=== PATIENT | female | born 1935 | race Caucasian/White ===

== ENCOUNTER → 2016-06-11 | Outpatient (CLI) | payer MEDICARE, BC ==
--- NOTE | 2016-06-11 10:41 | XR ---
EXAMINATION TYPE: XR sinus DATE OF EXAM ORDERED: 06/11/2016 10:19 AM HISTORY: Sinus pressure. COMPARISON: None. FINDINGS: The frontal sinuses are somewhat hypoplastic, greater on the left than the right. There is some haziness to the left frontal sinus and I cannot exclude some mucosal thickening. There is also mild haziness of the right maxillary sinus and I cannot exclude some mucosal disease. IMPRESSION: I CANNOT EXCLUDE SOME MUCOSAL THICKENING INVOLVING THE LEFT FRONTAL AND RIGHT MAXILLARY SINUSES.
== END | disposition home or self-care (01) ==
LOC: RADXRMAIN 10:04
PROVIDERS: ATTEND Family Medicine
DX: J32.9 Chronic sinusitis, unspecified (principal)
CPT/HCPCS: 70220

== ENCOUNTER → 2017-03-20 | Outpatient (CLI) | payer MEDICARE ==
--- NOTE | 2017-03-20 15:44 | CT ---
EXAMINATION TYPE: CT brain wo con DATE OF EXAM: 03/20/2017 COMPARISON: Prior CT brain 11/18/2015 HISTORY: Memory loss and lightheadedness. CT DLP: 999.80 mGycm Automated exposure control for dose reduction was used. Helical acquisition through the brain FINDINGS: There is no hemorrhage or hydrocephalus. Cerebral vascular calcifications are present. There is corti lemuel atrophy. Periventricular white matter shows patchy low attenuation. Calvarium is intact. Paranasa l sinuses and mastoid air cells as visualized are normal. Orbits show symmetric appearance. IMPRESSION: NO ACUTE BRAIN ABNORMALITY. AGE-RELATED CHANGES OF ATROPHY AND PROBABLE CHRONIC SMALL VESSEL ISCHEMIA .
== END | disposition home or self-care (01) ==
LOC: RADCTMAIN 14:38
PROVIDERS: ATTEND Psychiatry & Neurology Neurology
DX: G31.1 Senile degeneration of brain, not elsewhere classified (principal)
CPT/HCPCS: 70450

== ENCOUNTER 2017-06-08 06:56 | Emergency (ER) | payer BC, MEDICARE ==
[2017-06-08] MEDS ORDERED: SODIUM CHLORIDE 0.9% 500 ML IV STA ×2 (07:43→10:45)
[2017-06-08] MEDS ORDERED: ONDANSETRON 4 MG/2 ML VIAL IVP STA (07:43)
[2017-06-08] MEDS ORDERED: SODIUM CHLORIDE 0.9% 1,000 ML IV STA (07:43)
--- NOTE | 2017-06-08 07:47 | ED ---
Nausea/Vomiting/Diarrhea HPI - General Chief complaint: Nausea/Vomiting/Diarrhea Stated complaint: poss cdiff Time Seen by Provider: 06/08/17 07:30 Source: patient, family, RN notes reviewed Mode of arrival: wheelchair Limitations: no limitations - History of Present Illness Initial comments: This 81-year-old female with a prior history of C. difficile who had the onset last evening around 6:30 PM of nausea vomiting. This went on until around 10 PM that she started developing diarrhea every 45-60 minutes which is watery. She states it feels similar when she has C. diff in the past. She has not been on antibiotics recently she has some mild left lower quadrant crampy type pain no overt fevers chills or sweats she does feel dry she does feel weak. No other factors at this time MD complaint: nausea, vomiting, diarrhea - Related Data Home Medications Medication Instructions Recorded Confirmed Fish Oil/Dha/Epa [Fish Oil 1,200 1 cap PO DAILY 11/08/13 06/08/17 mg Fish Oil] Multivitamins, Thera [Multivitamin 1 tab PO DAILY 11/08/13 06/08/17 (formulary)] Calcium Carbonate/Vitamin D3 1 tab PO DAILY 04/07/14 06/08/17 [Calcium 500-Vit D3 400 Tablet] Simvastatin 20 mg PO HS 11/19/15 06/08/17 oxyCODONE HCL/ACETAMINOPHEN 1 tab PO TID 11/19/15 06/08/17 [Oxycodone-Acetaminophen 5-325] Lactobacillus Acidoph & Bulgar 1 packet PO BID 12/03/15 06/08/17 [Lactinex] ALPRAZolam [Xanax] 0.25 mg PO Q8H PRN 06/08/17 06/08/17 Loratadine [Claritin] 10 mg PO DAILY 06/08/17 06/08/17 Meclizine [Antivert] 25 mg PO Q8H 06/08/17 06/08/17 Methenamine Hippurate 1 gm PO BID 06/08/17 06/08/17 Previous Rx's Medication Instructions Recorded Sodium Chloride Tab 1 gm PO DAILY #30 tab 11/23/15 Allergies Allergy/AdvReac Type Severity Reaction Status Date / Time metronidazole [From Flagyl] Allergy Rash/Hives Verified 06/08/17 07:30 nitrofurantoin Allergy Anaphylaxis Verified 06/08/17 07:30 [From Macrobid] nitrofurantoin Allergy Anaphylaxis Verified 06/08/17 07:30 macrocrystalline [From Macrodantin] Sulfa (Sulfonamide Allergy Unknown Verified 06/08/17 07:30 Antibiotics) levofloxacin [From Levaquin] AdvReac Hallucinati Verified 06/08/17 07:30 ons Review of Systems ROS Statement: Those systems with pertinent positive or pertinent negative responses have been documented in the HPI. ROS Other: All systems not noted in ROS Statement are negative. Past Medical History Past Medical History: Chest Pain / Angina, Hyperlipidemia, Mitral Valve Prolapse (MVP), Renal Disease, Skin Disorder, Supraventricular Tachycardia (SVT) Additional Past Medical History / Comment(s): weakness, UTI. 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 Past Anesthesia/Blood Transfusion Reactions: Postoperative Nausea & Vomiting ( PONV) Past Psychological History: No Psychological Hx Reported Smoking Status: Former smoker Past Alcohol Use History: Daily Past Drug Use History: None Reported - Past Family History Father History Unknown: Yes Additional Family Medical History / Comment(s): Father of an aneurysm rupture at age 77 yrs. Mother History Unknown: Yes Family Medical History: Cancer Additional Family Medical History / Comment(s): Mother at age 77 of lung/ bone cancer. She was a smoker. Sister(s) Additional Family Medical History / Comment(s): MS Son(s) Family Medical History: Pneumonia General Exam - General Exam Comments Initial Comments: This is a well-developed well-nourished awake alert oriented 3 female Limitations: no limitations General appearance: alert, anxious Head exam: Present: atraumatic, normocephalic, normal inspection Eye exam: Present: normal appearance, PERRL, EOMI. Absent: scleral icterus, conjunctival injection, periorbital swelling ENT exam: Present: mucous membranes dry Neck exam: Present: normal inspection. Absent: tenderness, meningismus, lymphadenopathy Respiratory exam: Present: normal lung sounds bilaterally. Absent: respiratory distress, wheezes, rales, rhonchi, stridor Cardiovascular Exam: Present: regular rate, normal rhythm, normal heart sounds. Absent: systolic murmur, diastolic murmur, rubs, gallop, clicks GI/Abdominal exam: Present: soft, normal bowel sounds. Absent: distended, tenderness, guarding, rebound, rigid Extremities exam: Present: normal inspection, full ROM, normal capillary refill. Absent: tenderness, pedal edema, joint swelling, calf tenderness Back exam: Present: normal inspection Neurological exam: Present: alert, oriented X3, CN II-XII intact Psychiatric exam: Present: normal affect, normal mood Skin exam: Present: warm, dry, intact, normal color. Absent: rash Course Vital Signs 06/08/17 06/08/17 06/08/17 07:15 10:00 11:00 Temperature 97.0 F L 98.0 F 98.0 F Pulse Rate 97 84 80 Respiratory 18 20 18 Rate Blood Pressure 126/60 118/64 124/66 O2 Sat by Pulse 98 97 97 Oximetry Medical Decision Making - Medical Decision Making Patient did respond to IV fluids her test for C. diff is negative the did well after IV hydration she'll be discharged with her she is follow-up with her doctor return when necessary - Lab Data Result diagrams: 06/08/17 07:50 06/08/17 07:50 Lab Results 06/08/17 06/08/17 06/08/17 Range/Units 07:50 07:50 09:40 WBC 9.1 (3.8-10.6) k/uL RBC 4.76 (3.80-5.40) m/uL Hgb 14.6 (11.4-16.0) gm/dL Hct 45.6 (34.0-46.0) % MCV 95.8 (80.0-100.0) fL MCH 30.6 (25.0-35.0) pg MCHC 32.0 (31.0-37.0) g/dL RDW 13.2 (11.5-15.5) % Plt Count 237 (150-450) k/uL Neutrophils % 95 % Lymphocytes % 2 % Monocytes % 2 % Eosinophils % 1 % Basophils % 0 % Neutrophils # 8.6 H (1.3-7.7) k/uL Lymphocytes # 0.2 L (1.0-4.8) k/uL Monocytes # 0.1 (0-1.0) k/uL Eosinophils # 0.1 (0-0.7) k/uL Basophils # 0.0 (0-0.2) k/uL Sodium 137 (137-145) mmol/L Potassium 3.6 (3.5-5.1) mmol/L Chloride 102 (98-107) mmol/L Carbon Dioxide 24 (22-30) mmol/L Anion Gap 11 mmol/L BUN 20 H (7-17) mg/dL Creatinine 0.59 (0.52-1.04) mg/dL Est GFR (MDRD) Af Amer >60 (>60 ml/min/1.73 sqM) Est GFR (MDRD) Non-Af >60 (>60 ml/min/1.73 sqM) Glucose 132 H (74-99) mg/dL Calcium 9.3 (8.4-10.2) mg/dL Magnesium 1.6 (1.6-2.3) mg/dL Total Bilirubin 0.7 (0.2-1.3) mg/dL AST 27 (14-36) U/L ALT 30 (9-52) U/L Alkaline Phosphatase 78 (38-126) U/L Total Protein 7.4 (6.3-8.2) g/dL Albumin 4.5 (3.5-5.0) g/dL Amylase 51 (30-110) U/L Lipase 37 (23-300) U/L Urine Color Urine Appearance (Clear) Urine pH (5.0-8.0) Ur Specific [place] (1.001-1.035) Urine Protein (Negative) Urine Glucose (UA) (Negative) Urine Ketones (Negative) Urine Blood (Negative) Urine Nitrite (Negative) Urine Bilirubin (Negative) Urine Urobilinogen (<2.0) mg/dL Ur Leukocyte Esterase (Negative) Urine RBC (0-5) /hpf Urine WBC (0-5) /hpf Urine Bacteria (None) /hpf Urine Mucus (None) /hpf C. difficile (EIA) Intrp Negative (Negative) 06/08/17 Range/Units 09:40 WBC (3.8-10.6) k/uL RBC (3.80-5.40) m/uL Hgb (11.4-16.0) gm/dL Hct (34.0-46.0) % MCV (80.0-100.0) fL MCH (25.0-35.0) pg MCHC (31.0-37.0) g/dL RDW (11.5-15.5) % Plt Count (150-450) k/uL Neutrophils % % Lymphocytes % % Monocytes % % Eosinophils % % Basophils % % Neutrophils # (1.3-7.7) k/uL Lymphocytes # (1.0-4.8) k/uL Monocytes # (0-1.0) k/uL Eosinophils # (0-0.7) k/uL Basophils # (0-0.2) k/uL Sodium (137-145) mmol/L Potassium (3.5-5.1) mmol/L Chloride (98-107) mmol/L Carbon Dioxide (22-30) mmol/L Anion Gap mmol/L BUN (7-17) mg/dL Creatinine (0.52-1.04) mg/dL Est GFR (MDRD) Af Amer (>60 ml/min/1.73 sqM) Est GFR (MDRD) Non-Af (>60 ml/min/1.73 sqM) Glucose (74-99) mg/dL Calcium (8.4-10.2) mg/dL Magnesium (1.6-2.3) mg/dL Total Bilirubin (0.2-1.3) mg/dL AST (14-36) U/L ALT (9-52) U/L Alkaline Phosphatase (38-126) U/L Total Protein (6.3-8.2) g/dL Albumin (3.5-5.0) g/dL Amylase (30-110) U/L Lipase (23-300) U/L Urine Color Yellow Urine Appearance Cloudy H (Clear) Urine pH 6.0 (5.0-8.0) Ur Specific [place] 1.023 (1.001-1.035) Urine Protein Trace H (Negative) Urine Glucose (UA) Negative (Negative) Urine Ketones Negative (Negative) Urine Blood Trace H (Negative) Urine Nitrite Positive H (Negative) Urine Bilirubin Negative (Negative) Urine Urobilinogen <2.0 (<2.0) mg/dL Ur Leukocyte Esterase Negative (Negative) Urine RBC 10 H (0-5) /hpf Urine WBC 5 (0-5) /hpf Urine Bacteria Many H (None) /hpf Urine Mucus Rare H (None) /hpf C. difficile (EIA) Intrp (Negative) - Radiology Data Radiology results: report reviewed (Imaging was reviewed no acute findings.), image reviewed Disposition Clinical Impression: Gastroenteritis, Dehydration Disposition: HOME SELF-CARE Condition: Good Instructions: Acute Nausea and Vomiting (ED), Acute Diarrhea (ED), Dehydration (ED) Referrals: Jesse Abbasi MD [Primary Care Provider] - 1-2 days
[2017-06-08 08:02] LABS: Basophils % (A) 0 %; Eosinophils # (A) 0.1 k/uL (0-0.7); Eosinophils % (A) 1 %; HCT 45.6 % (34.0-46.0); HGB 14.6 gm/dL (11.4-16.0); Lymphocytes # (A) 0.2 k/uL (1.0-4.8); Lymphocytes % (A) 2 %; MCH 30.6 pg (25.0-35.0); MCV 95.8 fL (80.0-100.0); Monocytes # (A) 0.1 k/uL (0-1.0); Monocytes % (A) 2 %; Neutrophils # (A) 8.6 k/uL (1.3-7.7); Neutrophils % (A) 95 %; Platelet Count 237 k/uL (150-450); RBC 4.76 m/uL (3.80-5.40); RDW 13.2 % (11.5-15.5); WBC 9.1 k/uL (3.8-10.6)
--- NOTE | 2017-06-08 08:29 | XR ---
EXAMINATION TYPE: XR chest 2V DATE OF EXAM: 06/08/2017 COMPARISON: 06/28/2015 HISTORY: Nausea and vomiting TECHNIQUE: Frontal and lateral views of the chest are obtained. FINDINGS: There is coarsening of interstitial markings. There is no heart failure. Heart size is nor mal. Thoracic aorta is atheromatous. Bones are osteopenic. IMPRESSION: Pulmonary fibrosis. No heart failure. No significant change compared to old exam.
--- NOTE | 2017-06-08 08:31 | XR ---
EXAMINATION TYPE: XR KUB DATE OF EXAM: 06/08/2017 COMPARISON: 12/20/2014 HISTORY: Nausea and vomiting TECHNIQUE: 2 views FINDINGS: There is no sign of intestinal obstruction or pneumoperitoneum. Fecal pattern is normal. Th ere is mild lumbar levoscoliosis. There are no pathologic calcifications over the kidneys. There is v ascular calcification. IMPRESSION: Nonacute abdomen. No change.
[2017-06-08 08:33] LABS: ALT 30 U/L (9-52); AST 27 U/L (14-36); Albumin 4.5 g/dL (3.5-5.0); Alkaline Phosphatase 78 U/L (38-126); Amylase 51 U/L (30-110); Anion Gap 11 mmol/L; Blood Urea Nitrogen 20 mg/dL (7-17); Calcium 9.3 mg/dL (8.4-10.2); Carbon Dioxide 24 mmol/L (22-30); Chloride 102 mmol/L (98-107); Glucose 132 mg/dL (74-99); Lipase 37 U/L (23-300); Magnesium 1.6 mg/dL (1.6-2.3); Potassium 3.6 mmol/L (3.5-5.1); Sodium 137 mmol/L (137-145); Total Bilirubin 0.7 mg/dL (0.2-1.3); Total Protein 7.4 g/dL (6.3-8.2)
[2017-06-08 10:03] LABS: Appearance,Urine Cloudy (Clear); Bacteria,Urine Many /hpf; Bilirubin,Urine Negative (Negative); Blood,Urine Trace (Negative); Color,Urine Yellow; Glucose,Urine (UA) Negative (Negative); Ketones,Urine Negative (Negative); Leukocyte Esterase,Urine Negative (Negative); Mucus,Urine Rare /hpf; Nitrite,Urine Positive (Negative); Protein,Urine Trace (Negative); RBC,Urine 10 /hpf (0-5); Specific Gravity,Urine 1.023 (1.001-1.035); Urobilinogen,Urine <2.0 mg/dL (<2.0); WBC,Urine 5 /hpf (0-5)
[2017-06-08 12:00] VITALS: BP 123/61; PULSE 87; RESP 16; TEMP 98.8
== END 2017-06-08 12:18 | disposition home or self-care (01) ==
LOC: EC 06:56
DX: K52.9 Noninfective gastroenteritis and colitis, unspecified (principal); E78.5 Hyperlipidemia, unspecified; Z95.5 Presence of coronary angioplasty implant and graft; Z85.828 Personal history of other malignant neoplasm of skin; Z87.891 Personal history of nicotine dependence; Z79.891 Long term (current) use of opiate analgesic; Z79.899 Other long term (current) drug therapy; Z88.1 Allergy status to other antibiotic agents; Z88.2 Allergy status to sulfonamides
CPT/HCPCS: 99284 ×2; 96374 ×2; 96361 ×5; 36415; 80053; 82150; 83690; 83735; 85025; 81001; 87324; 71046; 74018; J2405

== ENCOUNTER 2017-10-20 09:40 | Emergency (ER) | payer MEDICARE ==
[2017-10-20] MEDS ORDERED: KETOROLAC 30 MG/ML 1 ML VIAL IM STA (10:21)
--- NOTE | 2017-10-20 10:26 | ED ---
General Adult HPI - General Chief complaint: Extremity Injury, Lower Stated complaint: Hip Pain Time Seen by Provider: 10/20/17 10:05 Source: patient Mode of arrival: wheelchair Limitations: no limitations - History of Present Illness Initial comments: Patient is an 81-year-old female presents with chief complaint of nontraumatic back pain. Patient states that she has a history of Achilles tendinitis and she has been wearing a boot for about a month. Patient states her hip started to hurt about a week ago and has gradually gotten worse. The patient was instructed to discontinue using her boot to make things better but this has not worked. Patient cannot identify any inciting incident. There are no aggravating or alleviating factors. She states that she does have increased pain with bearing weight and standing erect. Patient denies other symptoms at this time. She uses oxycodone for pain control and Motrin 800 3 times daily - Related Data Home Medications Medication Instructions Recorded Confirmed Simvastatin 20 mg PO DAILY 11/19/15 10/20/17 ALPRAZolam [Xanax] 0.25 mg PO Q8H PRN 06/08/17 10/20/17 Loratadine [Claritin] 10 mg PO DAILY 06/08/17 10/20/17 Meclizine [Antivert] 25 mg PO Q8H PRN 06/08/17 10/20/17 Methenamine Hippurate 1 gm PO BID 06/08/17 10/20/17 L. Acidophilus/L.bulgaricus 1 tab PO QID 10/20/17 10/20/17 [Lactinex Chewable Tablet] oxyCODONE-APAP 7.5-325MG [Percocet 1 tab PO TID 10/20/17 10/20/17 7.5-325 mg] Previous Rx's Medication Instructions Recorded Sodium Chloride Tab 1 gm PO DAILY #30 tab 11/23/15 Lidocaine 5% Patch [Lidoderm 5% 1 patch TOPICAL DAILY #20 patch 10/20/17 Patch] Naproxen [Naprosyn] 500 mg PO Q12HR #30 tab 10/20/17 Allergies Allergy/AdvReac Type Severity Reaction Status Date / Time metronidazole [From Flagyl] Allergy Rash/Hives Verified 10/20/17 10:54 nitrofurantoin Allergy Anaphylaxis Verified 10/20/17 10:54 [From Macrobid] nitrofurantoin Allergy Anaphylaxis Verified 10/20/17 10:54 macrocrystalline [From Macrodantin] Sulfa (Sulfonamide Allergy Unknown Verified 10/20/17 10:54 Antibiotics) levofloxacin [From Levaquin] AdvReac Hallucinati Verified 10/20/17 10:54 ons Review of Systems ROS Statement: Those systems with pertinent positive or pertinent negative responses have been documented in the HPI. ROS Other: All systems not noted in ROS Statement are negative. Musculoskeletal: Reports: back pain, arthralgia Past Medical History Past Medical History: Chest Pain / Angina, Hyperlipidemia, Mitral Valve Prolapse (MVP), Renal Disease, Skin Disorder, Supraventricular Tachycardia (SVT) Additional Past Medical History / Comment(s): weakness, UTI. 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 Past Anesthesia/Blood Transfusion Reactions: Postoperative Nausea & Vomiting ( PONV) Past Psychological History: No Psychological Hx Reported Smoking Status: Former smoker Past Alcohol Use History: Daily Past Drug Use History: None Reported - Past Family History Father History Unknown: Yes Additional Family Medical History / Comment(s): Father of an aneurysm rupture at age 77 yrs. Mother History Unknown: Yes Family Medical History: Cancer Additional Family Medical History / Comment(s): Mother at age 77 of lung/ bone cancer. She was a smoker. Sister(s) Additional Family Medical History / Comment(s): MS Son(s) Family Medical History: Pneumonia General Exam Limitations: no limitations General appearance: alert, in no apparent distress Head exam: Present: atraumatic, normocephalic Eye exam: Present: normal appearance ENT exam: Present: normal exam, mucous membranes moist Neck exam: Present: normal inspection Respiratory exam: Present: normal lung sounds bilaterally. Absent: respiratory distress, wheezes Cardiovascular Exam: Present: regular rate, normal rhythm GI/Abdominal exam: Present: soft. Absent: distended, tenderness Rectal exam: Present: deferred Extremities exam: Present: normal inspection, full ROM, other (Patient is full range of motion of the lower extremities at the hip and knee, there is no pain with internal, external rotation, flexion or extension.) Back exam: Present: full ROM, tenderness (Patient has tenderness at the inferior lateral aspect of her back on the left side. There is tenderness to palpation. There is muscle spasm noted on exam.), paraspinal tenderness Neurological exam: Present: alert, oriented X3 Psychiatric exam: Present: normal affect, normal mood Skin exam: Present: warm, dry, intact Course Vital Signs 10/20/17 09:48 Temperature 97.6 F Pulse Rate 83 Respiratory 18 Rate Blood Pressure 178/86 O2 Sat by Pulse 97 Oximetry Medical Decision Making - Medical Decision Making Patient presents with a chief complaint muscle spell back pain. On initial evaluation, vital signs are stable, patient is in no acute distress. She denies any traumatic injury to the area. Pain is most likely secondary to compensation from being in a walking boot. Patient will be sent for x-rays of the pelvis and dedicated films of the left hip. She was given Toradol for pain. 11:12 AM X-rays show mild osteoarthritis of the hip otherwise there is no acute process. On reevaluation, patient feeling improved after a dose of Toradol. Patient will be prescribed naproxen to use in addition with her oxycodone. She was instructed to continue taking the oxycodone as prescribed. Patient also prescribed lidocaine patches for local relief. Patient was instructed to follow up with primary care and orthopedics in 1-2 days, return to the emergency department if symptoms worsen or change. Disposition Clinical Impression: Low back pain Disposition: HOME SELF-CARE Condition: Good Instructions: Muscle Spasm (ED) Is patient prescribed a controlled substance at d/c from ED?: No Referrals: Jesse Abbasi MD [Primary Care Provider] - 1-2 days
--- NOTE | 2017-10-20 10:57 | XR ---
EXAMINATION TYPE: AP view pelvis and 2 views left hip DATE OF EXAM: 10/20/2017 COMPARISON: NONE HISTORY: 81-year-old female with lateral left hip pain FINDINGS: There is osteopenia. Mild degenerative spurring and mild superolateral hip joint space narrowing on b oth sides. No acute fracture, subluxation, or dislocation seen. SI joints appear intact. No delineati on to the arcuate lines of the sacrum. IMPRESSION: Mild osteopenia and mild bilateral hip osteoarthrosis. No acute osseous abnormality seen.
[2017-10-20 11:31] VITALS: BP 139/65; PULSE 63; RESP 16; TEMP 97
== END 2017-10-20 11:31 | disposition home or self-care (01) ==
LOC: EC 09:40
DX: M54.5 Low back pain (principal); M16.0 Bilateral primary osteoarthritis of hip; E78.5 Hyperlipidemia, unspecified; Z95.818 Presence of other cardiac implants and grafts; Z85.828 Personal history of other malignant neoplasm of skin; Z87.891 Personal history of nicotine dependence; Z79.891 Long term (current) use of opiate analgesic; Z79.899 Other long term (current) drug therapy; Z88.1 Allergy status to other antibiotic agents; Z88.2 Allergy status to sulfonamides
CPT/HCPCS: 99283; 96372; 73502; J1885

== ENCOUNTER 2018-06-25 17:06 | Emergency (ER) | payer MEDICARE ==
[2018-06-25 17:14] VITALS: BP 176/72; PULSE 66; RESP 20; TEMP 97.4
--- NOTE | 2018-06-25 17:58 | ED ---
Extremity Problem HPI - General Chief complaint: Extremity Problem,Nontraumatic Stated complaint: right foot swelling/pain Time Seen by Provider: 06/25/18 17:42 Source: patient, RN notes reviewed, old records reviewed Mode of arrival: ambulatory Limitations: no limitations - History of Present Illness Initial comments: Patient is a pleasant 82-year-old female who presents emergency Department with 1 day of right foot and ankle swelling. Patient reports no falls or trauma. She does have a history of multiple skin lesions on her lower extremities which she attributes to old age. [facility] also [facility]. The report they do not know all the results of the biopsy at this time. Patient presents today with a complaint of right foot and ankle swelling. She denies chest pain or shortness of breath. Patient has had no fevers or chills. She states that they kept the foot up and elevated for the past 5 hours today however the swelling continued to become worse. Patient states she's had no history of blood clots. - Related Data Home Medications Medication Instructions Recorded Confirmed ALPRAZolam [Xanax] 0.25 mg PO Q8H PRN 06/08/17 06/25/18 Meclizine [Antivert] 25 mg PO Q8H PRN 06/08/17 06/25/18 L. Acidophilus/L.bulgaricus 1 tab PO QID 10/20/17 06/25/18 [Lactinex Chewable Tablet] Acetaminophen Tab [Tylenol Tab] 650 mg PO Q6H PRN 06/25/18 06/25/18 Magnesium Oxide [Burch] 500 mg PO DAILY 06/25/18 06/25/18 Propranolol HCl [Propranolol HCl 60 mg PO DAILY 06/25/18 06/25/18 ER] guaiFENesin [Mucinex] 600 mg PO BID 06/25/18 06/25/18 Previous Rx's Medication Instructions Recorded Sodium Chloride Tab 1 gm PO DAILY #30 tab 11/23/15 Cephalexin [Keflex] 500 mg PO Q6HR 7 Days 06/25/18 Mupirocin [Mupirocin 2%] 1 applic TOPICAL TID #60 gm 06/25/18 Allergies Allergy/AdvReac Type Severity Reaction Status Date / Time metronidazole [From Flagyl] Allergy Rash/Hives Verified 06/25/18 17:39 nitrofurantoin Allergy Anaphylaxis Verified 06/25/18 17:39 [From Macrobid] nitrofurantoin Allergy Anaphylaxis Verified 06/25/18 17:39 macrocrystalline [From Macrodantin] Sulfa (Sulfonamide Allergy Unknown Verified 06/25/18 17:39 Antibiotics) levofloxacin [From Levaquin] AdvReac Hallucinati Verified 06/25/18 17:39 ons Review of Systems ROS Statement: Those systems with pertinent positive or pertinent negative responses have been documented in the HPI. ROS Other: All systems not noted in ROS Statement are negative. Past Medical History Past Medical History: Chest Pain / Angina, Hyperlipidemia, Mitral Valve Prolapse (MVP), Renal Disease, Skin Disorder, Supraventricular Tachycardia (SVT) Additional Past Medical History / Comment(s): weakness, UTI. 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 Past Anesthesia/Blood Transfusion Reactions: Postoperative Nausea & Vomiting ( PONV) Past Psychological History: No Psychological Hx Reported Smoking Status: Former smoker Past Alcohol Use History: Daily Past Drug Use History: None Reported - Past Family History Father History Unknown: Yes Additional Family Medical History / Comment(s): Father of an aneurysm rupture at age 77 yrs. Mother History Unknown: Yes Family Medical History: Cancer Additional Family Medical History / Comment(s): Mother at age 77 of lung/ bone cancer. She was a smoker. Sister(s) Additional Family Medical History / Comment(s): MS Son(s) Family Medical History: Pneumonia General Exam - General Exam Comments Initial Comments: This is a pleasant 82-year-old female. Here with her . Patient appears in no acute distress. Limitations: no limitations General appearance: alert, in no apparent distress Head exam: Present: atraumatic, normocephalic, normal inspection Eye exam: Present: normal appearance, PERRL, EOMI. Absent: scleral icterus, conjunctival injection, periorbital swelling ENT exam: Present: normal exam, mucous membranes moist Neck exam: Present: normal inspection. Absent: tenderness, meningismus, lymphadenopathy Respiratory exam: Present: normal lung sounds bilaterally. Absent: respiratory distress, wheezes, rales, rhonchi, stridor Cardiovascular Exam: Present: regular rate, normal rhythm, normal heart sounds. Absent: systolic murmur, diastolic murmur, rubs, gallop, clicks GI/Abdominal exam: Present: soft, normal bowel sounds. Absent: distended, tenderness, guarding, rebound, rigid Extremities exam: Present: normal inspection, full ROM, normal capillary refill. Absent: tenderness, pedal edema, joint swelling, calf tenderness Right Knee exam: Present: normal inspection, full ROM Lower Leg exam: Present: tenderness (Chest some tenderness over the lower extremity and erythema noted. Multiple skin lesions that have no surrounding drainage or cellulitis.). Absent: normal inspection Ankle exam: Present: full ROM, swelling. Absent: normal inspection Foot/Toe exam: Present: tenderness (Swelling over the medial malleolus.), swelling. Absent: normal inspection Neurovascular tendon exam: Present: no vascular compromise Back exam: Present: normal inspection Neurological exam: Present: alert, oriented X3, CN II-XII intact Psychiatric exam: Present: normal affect, normal mood Course Vital Signs 06/25/18 17:12 Temperature 97.4 F L Pulse Rate 66 Respiratory 20 Rate Blood Pressure 176/72 O2 Sat by Pulse 96 Oximetry Medical Decision Making - Medical Decision Making Patient is a pleasant 82-year-old female who presents emergency Department with 1 day of right foot and ankle swelling. US negative for DVT. XRAY shows soft tissue swelling. He denies any fever or any other complaints. I discussed that he checked for concerns for infection and cellulitis. 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 I did discuss with my next thought is the patient's symptoms are cellulitis from her skin lesions. Offered mupirocin and Keflex. I discussed the Patient can follow-up with her primary care physician. Discussed that if he area of redness and swelling gets worse that she may have to return for IV antibiotic. Patient agrees to treatment plan will comply. She'll follow -up with her PCP in 2 days. - Radiology Data Radiology results: report reviewed Soft tissue swelling or fracture. Calcaneal spurring. No acute abdomen on the right foot. No acute fracture seen. Ultrasound is negative for DVT. Disposition Clinical Impression: Right leg swelling Disposition: HOME SELF-CARE Condition: Good Instructions: Cellulitis (ED) Additional Instructions: Patient has to follow up with primary care physician. Pace keep the foot up and elevated. She is to use is antibiotic cream. If the area of redness or swelling continues to worsen please return to emergency department for reevaluation. Prescriptions: Cephalexin [Keflex] 500 mg PO Q6HR 7 Days Mupirocin [Mupirocin 2%] 1 applic TOPICAL TID #60 gm Is patient prescribed a controlled substance at d/c from ED?: No Referrals: Jesse Abbasi MD [Primary Care Provider] - 1-2 days Time of Disposition: 20:00
--- NOTE | 2018-06-25 18:57 | US ---
EXAMINATION TYPE: US venous doppler duplex LE RT DATE OF EXAM: 06/25/2018 6:40 PM COMPARISON: NONE CLINICAL HISTORY: Pain. Swelling right foot SIDE PERFORMED: Right TECHNIQUE: The lower extremity deep venous system is examined utilizing real time linear array sonog vaishali with graded compression, doppler sonography and color-flow sonography. VESSELS IMAGED: External Iliac Vein (EIV) Common Femoral Vein Deep Femoral Vein Greater Saphenous Vein * Femoral Vein Popliteal Vein Small Saphenous Vein * Proximal Calf Veins (* superficial vessels) Right Leg: Negative for DVT IMPRESSION: No evidence of deep venous thrombosis in the right leg.
--- NOTE | 2018-06-25 19:23 | XR ---
EXAMINATION TYPE: XR ankle complete RT DATE OF EXAM: 06/25/2018 COMPARISON: NONE HISTORY: Foot and ankle pain TECHNIQUE: 3 views FINDINGS: There is soft tissue swelling over the lateral malleolus. Ankle mortise is anatomic. There are plantar and Achilles calcaneal spurs. There are no erosions. IMPRESSION: Soft tissue swelling. No fracture. Calcaneal spurring.
--- NOTE | 2018-06-25 19:24 | XR ---
EXAMINATION TYPE: XR foot complete RT DATE OF EXAM: 06/25/2018 COMPARISON: NONE HISTORY: Foot pain TECHNIQUE: 3 views. FINDINGS: There are plantar and Achilles calcaneal spurs. There is vascular calcification. Metatarsals are inta ct. I see no fracture. There is some deformity of the proximal phalanx of the fourth toe consistent w ith old healed fracture. IMPRESSION: No acute abnormality of the right foot. No acute fracture seen.
== END 2018-06-25 20:17 | disposition home or self-care (01) ==
LOC: EC 17:06
DX: M79.89 Other specified soft tissue disorders (principal); M79.671 Pain in right foot; I34.1 Nonrheumatic mitral (valve) prolapse; I47.1 Supraventricular tachycardia; Z95.818 Presence of other cardiac implants and grafts; Z98.890 Other specified postprocedural states; Z85.828 Personal history of other malignant neoplasm of skin; Z87.891 Personal history of nicotine dependence; Z79.899 Other long term (current) drug therapy; Z88.1 Allergy status to other antibiotic agents; Z88.2 Allergy status to sulfonamides
CPT/HCPCS: 99284

== ENCOUNTER → 2018-07-12 | Outpatient (CLI) | payer MEDICARE ==
--- NOTE | 2018-07-13 11:35 | XR ---
EXAMINATION TYPE: XR foot complete RT DATE OF EXAM: 07/12/2018 COMPARISON: 06/25/2018 HISTORY: Joint disorder TECHNIQUE: Three-view right foot FINDINGS: Mild degenerative joint changes at the first metatarsophalangeal joint space. No acute frac tures are evident. Plantar and Achilles tendon calcaneal heel spurs are present. IMPRESSION: 1. No acute osseous abnormality.
== END | disposition home or self-care (01) ==
LOC: RADXRMAIN 16:16
PROVIDERS: ATTEND Family Medicine
DX: M25.871 Other specified joint disorders, right ankle and foot (principal)

== ENCOUNTER 2018-07-18 06:20 | Inpatient (IN) | payer MEDICARE ==
--- NOTE | 2018-07-18 07:33 | ED ---
Lower Extremity Injury HPI - General Chief Complaint: Extremity Injury, Lower Stated Complaint: R Foot Pain Time Seen by Provider: 07/18/18 07:02 Source: patient, EMS, RN notes reviewed, old records reviewed Mode of arrival: EMS - History of Present Illness Initial Comments: Patient is an 82-year-old female who presents emergency Department via EMS with her . Patient presents today complaining of right foot pain. Patient's reports that she was diagnosed with a stress fracture by orthopedic Dr. Meza. Patient has been dealing with progressive pain over the right foot. Apparently Patient was having significant difficulty with ambulation and crying in pain. EMS was called. She was given 4 mg of IV morphine in route. Patient' s is concerned that he is unable to take care of her at home due to this increased pain within her foot and inability to ambulate. He reports that it was a struggle for him to get her to go to the bathroom. He is worried about fall risk. Patient denies any other physical complaints at this time. Patient's did speak to me privately and states that she is struggling mentally and believes that she has had the possibility of increased dementia. - Related Data Home Medications Medication Instructions Recorded Confirmed ALPRAZolam [Xanax] 0.25 mg PO Q8H PRN 06/08/17 07/18/18 L. Acidophilus/L.bulgaricus 1 tab PO QID 10/20/17 07/18/18 [Lactinex Chewable Tablet] Acetaminophen Tab [Tylenol Tab] 650 mg PO Q6H PRN 06/25/18 07/18/18 guaiFENesin [Mucinex] 600 mg PO BID 06/25/18 07/18/18 Cranberry 450mg 1 tab PO BID 07/18/18 07/18/18 Ibuprofen [Motrin] 800 mg PO Q6H PRN 07/18/18 07/18/18 Propranolol [Inderal] 10 mg PO TID 07/18/18 07/18/18 Previous Rx's Medication Instructions Recorded Sodium Chloride Tab 1 gm PO DAILY #30 tab 11/23/15 Allergies Allergy/AdvReac Type Severity Reaction Status Date / Time metronidazole [From Flagyl] Allergy Rash/Hives Verified 07/18/18 08:55 nitrofurantoin Allergy Anaphylaxis Verified 07/18/18 08:55 [From Macrobid] nitrofurantoin Allergy Anaphylaxis Verified 07/18/18 08:55 macrocrystalline [From Macrodantin] Sulfa (Sulfonamide Allergy Unknown Verified 07/18/18 08:55 Antibiotics) levofloxacin [From Levaquin] AdvReac Hallucinati Verified 07/18/18 08:55 ons Review of Systems ROS Statement: Those systems with pertinent positive or pertinent negative responses have been documented in the HPI. ROS Other: All systems not noted in ROS Statement are negative. Past Medical History Past Medical History: Chest Pain / Angina, Hyperlipidemia, Mitral Valve Prolapse (MVP), Renal Disease, Skin Disorder, Supraventricular Tachycardia (SVT) Additional Past Medical History / Comment(s): weakness, UTI. 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 Past Anesthesia/Blood Transfusion Reactions: Postoperative Nausea & Vomiting ( PONV) Past Psychological History: No Psychological Hx Reported Smoking Status: Former smoker Past Alcohol Use History: Daily Past Drug Use History: None Reported - Past Family History Father History Unknown: Yes Additional Family Medical History / Comment(s): Father of an aneurysm rupture at age 77 yrs. Mother History Unknown: Yes Family Medical History: Cancer Additional Family Medical History / Comment(s): Mother at age 77 of lung/ bone cancer. She was a smoker. Sister(s) Additional Family Medical History / Comment(s): MS Son(s) Family Medical History: Pneumonia General Exam - General Exam Comments Initial Comments: 82-year-old female. Alert and oriented. No significant distress. General appearance: alert Head exam: Present: atraumatic, normocephalic, normal inspection Eye exam: Present: normal appearance, PERRL, EOMI. Absent: scleral icterus, conjunctival injection, periorbital swelling ENT exam: Present: normal exam, mucous membranes moist Neck exam: Present: normal inspection. Absent: tenderness, meningismus, lymphadenopathy Respiratory exam: Present: normal lung sounds bilaterally. Absent: respiratory distress, wheezes, rales, rhonchi, stridor Cardiovascular Exam: Present: regular rate, normal rhythm, normal heart sounds. Absent: systolic murmur, diastolic murmur, rubs, gallop, clicks GI/Abdominal exam: Present: soft, normal bowel sounds. Absent: distended, tenderness, guarding, rebound, rigid Extremities exam: Present: normal inspection, full ROM, normal capillary refill. Absent: tenderness, pedal edema, joint swelling, calf tenderness Right Knee exam: Present: normal inspection, full ROM Ankle exam: Present: normal inspection, full ROM, tenderness (Patient is status over the lateral medial malleolus.) Foot/Toe exam: Present: normal inspection, full ROM Neurovascular tendon exam: Present: no vascular compromise, pulse deficit Gait: unable to bear weight Back exam: Present: normal inspection Neurological exam: Present: alert, oriented X3, CN II-XII intact Psychiatric exam: Present: normal affect, normal mood Skin exam: Present: warm, dry, intact, normal color. Absent: rash Course Vital Signs 07/18/18 07/18/18 06:26 07:18 Temperature 98.4 F Pulse Rate 64 62 Respiratory 16 18 Rate Blood Pressure 160/75 O2 Sat by Pulse 98 96 Oximetry Procedures - Orthopedic Splinting/Casting Injury #1 Side: right Lower Extremity Injury Location: short leg Lower Extremity Immobilizer: posterior splint Medical Decision Making - Medical Decision Making 8-year-old female present today with her complaints of right foot and ankle pain. Patient reports she was diagnosed with a stress fracture within her foot. She is recently placed in a walking boot by Dr. Meza. X-rays were repeat completed of the ankle. There is evidence of a new distal tibial fracture. Patient was placed in a posterior splint. Patient's is concerned due to the pain and inability ambulate and concern for falls. He requests the Patient be admitted for possibility of placement to an extended- care facility. He also reports the Patient has had some increasing dementia. Patient's labwork was obtained. There is also evidence of a urinary tract infection. Patient will have admission with a consult. - Lab Data Result diagrams: 07/18/18 07:55 07/18/18 07:55 Lab Results 07/18/18 07/18/18 07/18/18 Range/Units 07:55 07:55 08:25 WBC 7.4 (3.8-10.6) k/uL RBC 3.90 (3.80-5.40) m/uL Hgb 12.6 (11.4-16.0) gm/dL Hct 38.3 (34.0-46.0) % MCV 98.2 (80.0-100.0) fL MCH 32.4 (25.0-35.0) pg MCHC 33.0 (31.0-37.0) g/dL RDW 13.3 (11.5-15.5) % Plt Count 328 (150-450) k/uL Neutrophils % 60 % Lymphocytes % 24 % Monocytes % 10 % Eosinophils % 5 % Basophils % 1 % Neutrophils # 4.4 (1.3-7.7) k/uL Lymphocytes # 1.8 (1.0-4.8) k/uL Monocytes # 0.7 (0-1.0) k/uL Eosinophils # 0.3 (0-0.7) k/uL Basophils # 0.0 (0-0.2) k/uL Sodium 138 (137-145) mmol/L Potassium 4.3 (3.5-5.1) mmol/L Chloride 103 (98-107) mmol/L Carbon Dioxide 29 (22-30) mmol/L Anion Gap 6 mmol/L BUN 22 H (7-17) mg/dL Creatinine 0.59 (0.52-1.04) mg/dL Est GFR (CKD-EPI)AfAm >90 (>60 ml/min/1.73 sqM) Est GFR (CKD-EPI)NonAf 86 (>60 ml/min/1.73 sqM) Glucose 89 (74-99) mg/dL Calcium 9.1 (8.4-10.2) mg/dL Total Bilirubin 0.6 (0.2-1.3) mg/dL AST 18 (14-36) U/L ALT 17 (9-52) U/L Alkaline Phosphatase 88 (38-126) U/L Total Protein 6.6 (6.3-8.2) g/dL Albumin 3.7 (3.5-5.0) g/dL Urine Color Light Yellow Urine Appearance Clear (Clear) Urine pH 5.5 (5.0-8.0) Ur Specific Farley 1.010 (1.001-1.035) Urine Protein Negative (Negative) Urine Glucose (UA) Negative (Negative) Urine Ketones Negative (Negative) Urine Blood Negative (Negative) Urine Nitrite Positive H (Negative) Urine Bilirubin Negative (Negative) Urine Urobilinogen <2.0 (<2.0) mg/dL Ur Leukocyte Esterase Negative (Negative) Urine WBC <1 (0-5) /hpf Ur Squamous Epith Cells <1 (0-4) /hpf Urine Bacteria Moderate H (None) /hpf Urine Mucus Rare H (None) /hpf 07/18/18 08:46 EKG shows normal sinus rhythm and incomplete right bundle branch block. Borderline EKG. Ventricular rate of 60 bpm. Intervals 192 ms. QRS duration 92 ms. QT QTc is 420 ms. - Radiology Data Radiology results: report reviewed A new nondisplaced oblique fracture through the distal mid diaphyseal tibia. Healing distal diaphyseal fibular fracture. Diffuse soft tissue swelling. Chest x-ray shows minimal costophrenic angle findings may represent atelectasis. Right lower extremity is negative for DVT. Foot x-ray appears normal. Disposition Clinical Impression: Right tibial fracture, Inability to ambulate due to ankle or foot, Weakness generalized, UTI (urinary tract infection) Disposition: ADMITTED IP TO THIS [facility] Condition: Stable Is patient prescribed a controlled substance at d/c from ED?: No Referrals: Jesse Abbasi MD [Primary Care Provider] - 1-2 days Time of Disposition: 09:55
[2018-07-18] MEDS: SODIUM CHLORIDE 0.9% 1,000 ML IV SCH ×2 (07:56→18:31)
[2018-07-18 08:18] LABS: Basophils % (A) 1 %; Eosinophils # (A) 0.3 k/uL (0-0.7); Eosinophils % (A) 5 %; HCT 38.3 % (34.0-46.0); HGB 12.6 gm/dL (11.4-16.0); Lymphocytes # (A) 1.8 k/uL (1.0-4.8); Lymphocytes % (A) 24 %; MCH 32.4 pg (25.0-35.0); MCV 98.2 fL (80.0-100.0); Mean Platelet Volume 6.5; Monocytes # (A) 0.7 k/uL (0-1.0); Monocytes % (A) 10 %; Neutrophils # (A) 4.4 k/uL (1.3-7.7); Neutrophils % (A) 60 %; Platelet Count 328 k/uL (150-450); RDW 13.3 % (11.5-15.5); WBC 7.4 k/uL (3.8-10.6)
[2018-07-18 08:26] LABS: ALT 17 U/L (9-52); AST 18 U/L (14-36); Albumin 3.7 g/dL (3.5-5.0); Alkaline Phosphatase 88 U/L (38-126); Anion Gap 6 mmol/L; Blood Urea Nitrogen 22 mg/dL (7-17); Calcium 9.1 mg/dL (8.4-10.2); Carbon Dioxide 29 mmol/L (22-30); Chloride 103 mmol/L (98-107); Glucose 89 mg/dL (74-99); Potassium 4.3 mmol/L (3.5-5.1); Sodium 138 mmol/L (137-145); Total Bilirubin 0.6 mg/dL (0.2-1.3); Total Protein 6.6 g/dL (6.3-8.2)
--- NOTE | 2018-07-18 08:37 | US ---
EXAMINATION TYPE: US venous doppler duplex LE RT DATE OF EXAM: 07/18/2018 8:18 AM COMPARISON: NONE CLINICAL HISTORY: Pain. Right leg pain SIDE PERFORMED: right TECHNIQUE: The lower extremity deep venous system is examined utilizing real time linear array sonog vaishali with graded compression, doppler sonography and color-flow sonography. VESSELS IMAGED: External Iliac Vein (EIV) Common Femoral Vein Deep Femoral Vein Greater Saphenous Vein * Femoral Vein Popliteal Vein Small Saphenous Vein * Proximal Calf Veins (* superficial vessels) Right Leg: No evidence of DVT IMPRESSION: 1. Right lower extremity negative for deep venous thrombosis.
[2018-07-18 08:56] LABS: Appearance,Urine Clear (Clear); Bacteria,Urine Moderate /hpf; Bilirubin,Urine Negative (Negative); Blood,Urine Negative (Negative); Color,Urine Light Yellow; Glucose,Urine (UA) Negative (Negative); Ketones,Urine Negative (Negative); Leukocyte Esterase,Urine Negative (Negative); Mucus,Urine Rare /hpf; Nitrite,Urine Positive (Negative); PH, Urine 5.5 (5.0-8.0); Protein,Urine Negative (Negative); Squamous Epithelial Cell,Urine <1 /hpf (0-4); Urobilinogen,Urine <2.0 mg/dL (<2.0)
--- NOTE | 2018-07-18 08:59 | XR ---
EXAMINATION TYPE: XR chest 2V DATE OF EXAM: 07/18/2018 COMPARISON: 06/08/2017 INDICATION: Pain TECHNIQUE: Frontal and lateral views of the chest are obtained. FINDINGS: The heart size is normal. The pulmonary vasculature is normal. Some mild infiltrate is present at the right costophrenic angle. Minimal blunting of the left costoph renic angle may be present. No posterior pleural effusions are identified.. Sternotomy wires are pre sent in the midline. IMPRESSION: 1. Minimal costophrenic angle findings may be related atelectasis.
--- NOTE | 2018-07-18 09:06 | XR ---
EXAMINATION TYPE: XR foot limited RT DATE OF EXAM: 07/18/2018 COMPARISON: 07/12/2018 HISTORY: Pain TECHNIQUE: Right foot is examined in 2 projections. This exam is compared to 07/12/2018. FINDINGS: Structures appear osteopenic. No acute fractures are identified. Joint spaces appear preser lizeth. Soft tissues appear normal. Small plantar calcaneal heel spur is present. IMPRESSION: 1. No acute osseous abnormality right foot
--- NOTE | 2018-07-18 09:15 | XR ---
EXAMINATION TYPE: XR ankle complete RT DATE OF EXAM: 07/18/2018 COMPARISON: 06/25/2018 HISTORY: Pain TECHNIQUE: Three-view right ankle FINDINGS: There is a new oblique fracture through the distal metaphyseal tibia visualized. This is no ndisplaced. There appears to be some healing of the distal diaphyseal fibular fracture. Callus formation about th e fracture site is present. Ankle mortise is intact. Diffuse soft tissue swelling is present. Vascular calcification is noted IMPRESSION: 1. New nondisplaced oblique fracture through the distal metadiaphyseal tibia. 2. Healing distal diaphyseal fibular fracture. 3. Diffuse soft tissue swelling.
[2018-07-18] MEDS ORDERED: NALOXONE 0.4 MG/ML 1 ML VIAL IV PRN (09:56)
[2018-07-18] MEDS ORDERED: MORPHINE SULFATE 4 MG/ML SYRINGE IV PRN (09:56)
[2018-07-18] MEDS ORDERED: LORazepam 2 MG/ML INJ IV PRN (09:56)
[2018-07-18] MEDS: HYDROcodone/APAP 5-325MG 1 EACH TAB PO PRN (17:07)
[2018-07-18] MEDS: PROPRANOLOL 10 MG TAB PO SCH (20:27)
[2018-07-18] MEDS: ACETAMINOPHEN TAB 325 MG TAB PO PRN (20:27)
[2018-07-19] MEDS: SODIUM CHLORIDE 0.9% 1,000 ML IV SCH ×3 (06:14→23:40)
[2018-07-19] MEDS: PROPRANOLOL 10 MG TAB PO SCH ×3 (07:51→21:16)
[2018-07-19] MEDS: HYDROcodone/APAP 5-325MG 1 EACH TAB PO PRN ×2 (07:51→23:38)
[2018-07-19] MEDS: SODIUM CHLORIDE TAB 1 GM TAB PO SCH (07:55)
[2018-07-19] MEDS: PANTOPRAZOLE 40 MG/10 ML VIAL IV SCH (07:55)
[2018-07-19] MEDS ORDERED: ONDANSETRON 4 MG/2 ML VIAL IVP PRN (10:26)
[2018-07-19] MEDS ORDERED: MORPHINE SULFATE 4 MG/ML SYRINGE IVP PRN (11:34)
--- NOTE | 2018-07-19 11:34 | P.HPIM ---
History of Present Illness H&P Date: 07/19/18 Chief Complaint: Weakness and fracture This is an 82-year-old white female with a known history of recurrent alcohol use, SIADH and hyponatremia. She was in the office several weeks ago for right ankle pain. X-ray was done in the emergency room here in [facility] which showed no acute fracture. She was having a hard time weightbearing and the diagnosis of suspected ankle sprain was made. She was placed in a air cast and asked to bear minimal weight on this leg and allowed to heal. She, several weeks later, had much more severe pain after stepping down on this. She was seen in the office immediately scheduled for urgent visit with orthopedics on suspicion of acute stress fracture. She is diagnosed with Dr. Meza and was sent home with the AFO. At home she was unable to do anything and had extreme pain. Her also reports that she became dizzy and lightheaded. He brought her to emergency room for further evaluation. Today she is doing a bit better. She says her pain is significant but controlled with medication. She denies any more dizziness or lightheadedness. She denies any chest pains, pressures, shortness breath, nausea, or vomiting of his time. Review of Systems All systems: negative Past Medical History Past Medical History: Chest Pain / Angina, Hyperlipidemia, Mitral Valve Prolapse (MVP), Renal Disease, Skin Disorder, Supraventricular Tachycardia (SVT) Additional Past Medical History / Comment(s): weakness, UTI. 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 Past Anesthesia/Blood Transfusion Reactions: Postoperative Nausea & Vomiting ( PONV) Past Psychological History: No Psychological Hx Reported Additional Psychological History / Comment(s): Pt resides with her spouse of 61 yrs. She uses a cane if she is going out of the house. She drives. She performs her own ADLs. She has balance issues. Smoking Status: Former smoker Past Alcohol Use History: Daily Additional Past Alcohol Use History / Comment(s): Pt started smoking in 1952 and quit in 1963. 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 No recent travel. Past Drug Use History: None Reported - Past Family History Father History Unknown: Yes Additional Family Medical History / Comment(s): Father of an aneurysm rupture at age 77 yrs. Mother History Unknown: Yes Family Medical History: Cancer Additional Family Medical History / Comment(s): Mother at age 77 of lung/ bone cancer. She was a smoker. Sister(s) Additional Family Medical History / Comment(s): MS Son(s) Family Medical History: Pneumonia Medications and Allergies Home Medications Medication Instructions Recorded Confirmed Type Sodium Chloride Tab 1 gm PO DAILY #30 tab 11/23/15 07/18/18 Rx ALPRAZolam [Xanax] 0.25 mg PO Q8H PRN 06/08/17 07/18/18 History L. Acidophilus/L.bulgaricus 1 tab PO QID 10/20/17 07/18/18 History [Lactinex Chewable Tablet] Acetaminophen Tab [Tylenol Tab] 650 mg PO Q6H PRN 06/25/18 07/18/18 History guaiFENesin [Mucinex] 600 mg PO BID 06/25/18 07/18/18 History Cranberry 450mg 1 tab PO BID 07/18/18 07/18/18 History Ibuprofen [Motrin] 800 mg PO Q6H PRN 07/18/18 07/18/18 History Propranolol [Inderal] 10 mg PO TID 07/18/18 07/18/18 History Allergies Allergy/AdvReac Type Severity Reaction Status Date / Time metronidazole [From Flagyl] Allergy Rash/Hives Verified 07/18/18 08:55 nitrofurantoin Allergy Anaphylaxis Verified 07/18/18 08:55 [From Macrobid] nitrofurantoin Allergy Anaphylaxis Verified 02/10/19 08:55 macrocrystalline [From Macrodantin] Sulfa (Sulfonamide Allergy Unknown Verified 07/18/18 08:55 Antibiotics) levofloxacin [From Levaquin] AdvReac Hallucinati Verified 07/18/18 08:55 ons Physical Exam Vitals: Vital Signs Temp Pulse Pulse Resp BP BP Pulse Ox 07/19/18 07:58 97.8 F 78 16 160/85 96 07/18/18 23:15 98.6 F 72 17 156/71 94 L 07/18/18 19:05 97.5 F L 97 17 151/72 98 07/18/18 16:38 97.7 F 84 16 148/70 95 07/18/18 12:04 98.5 F 65 18 135/81 96 Intake and Output 07/18/18 07/19/18 07/19/18 22:59 06:59 14:59 Other: Voiding Method Bedpan Bedpan # Voids 4 8 GENERAL: Well-appearing, Thin elderly white female well-known to me. She appears in minimal distress due to pain HEAD: Atraumatic, normocephalic. EYES: Pupils equal round and reactive to light, extraocular movements intact, sclera anicteric, conjunctiva are normal. ENT:nares patent, oropharynx clear without exudates. Moist mucous membranes. NECK: Normal range of motion, supple without lymphadenopathy or JVD, no thyromegaly LUNGS: Breath sounds clear to auscultation bilaterally and equal. No wheezes rales or rhonchi. HEART: Regular rate and rhythm without murmurs, rubs or gallops.S1S2 Normal ABDOMEN: Soft, nontender, normoactive bowel sounds. No guarding, no rebound. No masses appreciated. EXTREMITIES: There is a large right ankle dressing in place. NEUROLOGICAL: Cranial nerves II through XII grossly intact. Normal speech, Gait is untestable PSYCH: Normal mood, normal affect. SKIN: Warm, Dry, normal turgor, no rashes or lesions noted. Results CBC & Chem 7: 07/18/18 07:55 07/18/18 07:55 Chest x-ray: report reviewed Venous US: report reviewed Thrombosis Risk Factor Assmnt - DVT/VTE Prophylaxis DVT/VTE Prophylaxis: Pharmacologic Prophylaxis ordered - Choose All That Apply Each Risk Factor Represents 3 Points: Age 75 years or older Thrombosis Risk Factor Assessment Total Risk Factor Score: 3 Thrombosis Risk Factor Assessment Level: Moderate Risk Assessment and Plan (1) Syncopal episodes Current Visit: Yes Status: Acute Code(s): R55 - SYNCOPE AND COLLAPSE SNOMED Code(s): 033666013 (2) Inability to ambulate due to ankle or foot Current Visit: Yes Status: Acute Code(s): R26.2 - DIFFICULTY IN WALKING, NOT ELSEWHERE CLASSIFIED SNOMED Code(s): 768660181 (3) Right tibial fracture Current Visit: Yes Status: Acute Code(s): S82.201A - UNSP FRACTURE OF SHAFT OF RIGHT TIBIA, INIT FOR CLOS FX SNOMED Code(s): 55063426 (4) Weakness generalized Current Visit: Yes Status: Acute Code(s): R53.1 - WEAKNESS SNOMED Code(s) : 53465037 Plan: We'll consult physical therapy, repeat laboratory studies to evaluate her sodium and will consult nephrology if needed, ask orthopedic surgery regarding her fracture, reevaluate next 24 hours, continue pain medication
[2018-07-19] MEDS: HEPARIN SODIUM,PORCINE 5,000 UNIT/ML 1 ML VIAL SQ SCH ×3 (12:41→23:38)
--- NOTE | 2018-07-19 17:38 | P.CNOR ---
History of Present Illness - HPI Consult date: 07/19/18 History of present illness: This patient is an 82-year-old female past medical history of hyponatremia, SIADH, and recurrent alcohol use who presented to the emergency department via EMS with her on 07/18/18 after she was crying in pain and having difficulty ambulating. Patient was seen in the office by Dr. Meza last 07/15/18 where she was diagnosed with a right nondisplaced distal fibular fracture, and was instructed to weight bear as tolerated while in an equalizer boot. On arrival to ED yesterday, patient was found to have a new right nondisplaced oblique fracture through the distal mid diaphyseal tibia, in addition to the known right distal fibular fracture. is not in the room at the time of my exam, and patient is a poor historian. Therefore obtaining a history is difficult. Per patient, she does not know why an EMS was called or why she came to the hospital. Currently, she denies pain in the right lower extremity. She denies pain anywhere in the body. She denies injury or fall. She denies chest pain, shortness of breath, numbness or tingling of right lower extremity. She has no complaints at the time of my exam. Review of Systems Please refer to HPI. Past Medical History Past Medical History: Chest Pain / Angina, Hyperlipidemia, Mitral Valve Prolapse (MVP), Renal Disease, Skin Disorder, Supraventricular Tachycardia (SVT) Additional Past Medical History / Comment(s): weakness, UTI. 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 Past Anesthesia/Blood Transfusion Reactions: Postoperative Nausea & Vomiting ( PONV) Past Psychological History: No Psychological Hx Reported Additional Psychological History / Comment(s): Pt resides with her spouse of 61 yrs. She uses a cane if she is going out of the house. She drives. She performs her own ADLs. She has balance issues. Smoking Status: Former smoker Past Alcohol Use History: Daily Additional Past Alcohol Use History / Comment(s): Pt started smoking in 1952 and quit in 1963. She drinks 1-2 glasses of wine daily as instructed by her production intern. No recent travel. Past Drug Use History: None Reported - Past Family History Father History Unknown: Yes Additional Family Medical History / Comment(s): Father of an aneurysm rupture at age 77 yrs. Mother History Unknown: Yes Family Medical History: Cancer Additional Family Medical History / Comment(s): Mother at age 77 of lung/ bone cancer. She was a smoker. Sister(s) Additional Family Medical History / Comment(s): MS Son(s) Family Medical History: Pneumonia Medications and Allergies Home Medications Medication Instructions Recorded Confirmed Type Sodium Chloride Tab 1 gm PO DAILY #30 tab 11/23/15 07/18/18 Rx ALPRAZolam [Xanax] 0.25 mg PO Q8H PRN 06/08/17 07/18/18 History L. Acidophilus/L.bulgaricus 1 tab PO QID 10/20/17 07/18/18 History [Lactinex Chewable Tablet] Acetaminophen Tab [Tylenol Tab] 650 mg PO Q6H PRN 06/25/18 07/18/18 History guaiFENesin [Mucinex] 600 mg PO BID 06/25/18 07/18/18 History Cranberry 450mg 1 tab PO BID 07/18/18 07/18/18 History Ibuprofen [Motrin] 800 mg PO Q6H PRN 07/18/18 07/18/18 History Propranolol [Inderal] 10 mg PO TID 07/18/18 07/18/18 History Allergies Allergy/AdvReac Type Severity Reaction Status Date / Time metronidazole [From Flagyl] Allergy Rash/Hives Verified 07/18/18 08:55 nitrofurantoin Allergy Anaphylaxis Verified 07/18/18 08:55 [From Macrobid] nitrofurantoin Allergy Anaphylaxis Verified 07/18/18 08:55 macrocrystalline [From Macrodantin] Sulfa (Sulfonamide Allergy Unknown Verified 07/18/18 08:55 Antibiotics) levofloxacin [From Levaquin] AdvReac Hallucinati Verified 07/18/18 08:55 ons Physical Examination On examination, the patient is sitting up in bed in no acute distress. She is alert and orientated x2. Head is normocephalic and atraumatic. Non-labored breathing. On inspection of the right lower extremity, a posterior splint is in place. Splint is clean, dry, and intact. Patient is able to wiggle toes without difficulty. No pain with PROM of the right knee. The right toes are warm and well-perfused, with brisk capillary refill. Sensation is intact to light touch of the dorsal foot. Neurovascular is intact of the right lower extremity. On inspection of the left lower extremity, there is laceration covered by a bandage in place on the left lower leg, no active drainage, or surrounding erythema. No tenderness to palpation of the left lower leg. No pain with PROM of the left knee, left ankle, or left toes. Left toes are warm and well- perfused with brisk capillary refill. Results 07/18/18 right foot xray: No fractures or acute bony abnormalities. 07/18/18 right ankle xray: New nondisplaced oblique fracture through the distal metadiaphyseal tibia. Healing distal diaphyseal fibular fracture. - Labs Labs: H & H 07/18/18 Range/Units 07:55 Hgb 12.6 (11.4-16.0) gm/dL Hct 38.3 (34.0-46.0) % Result Diagrams: 07/18/18 07:55 07/18/18 07:55 Assessment and Plan Assessment: Acute right nondisplaced oblique fracture of the distal tibia Subacute right distal diaphyseal fibular fracture Plan: - Patient is to remain strictly non-weight bearing of right lower extremity. Remain in posterior splint, or she may transition back into her equalizer boot. - Ice and elevate right lower extremity to decrease pain and swelling. - PT/OT for gait and balance training. - Patient is to follow-up with Dr. Meza in the office in 1-2 days after discharge for application of a cast. - Anticipate discharge to extended care facility. - Patient discussed with Dr. Meza.
[2018-07-20] MEDS: HYDROcodone/APAP 5-325MG 1 EACH TAB PO PRN ×2 (05:16→20:00)
[2018-07-20 07:59] LABS: Basophils % (A) 0 %; Eosinophils # (A) 0.4 k/uL (0-0.7); Eosinophils % (A) 5 %; HCT 39.3 % (34.0-46.0); HGB 12.9 gm/dL (11.4-16.0); Lymphocytes % (A) 15 %; MCH 32.1 pg (25.0-35.0); MCHC 32.7 g/dL (31.0-37.0); Mean Platelet Volume 6.6; Monocytes # (A) 0.4 k/uL (0-1.0); Monocytes % (A) 6 %; Neutrophils # (A) 4.6 k/uL (1.3-7.7); Neutrophils % (A) 71 %; Platelet Count 312 k/uL (150-450); RBC 4.01 m/uL (3.80-5.40); RDW 13.1 % (11.5-15.5); WBC 6.5 k/uL (3.8-10.6)
--- NOTE | 2018-07-20 08:06 | P.PN ---
Subjective Progress Note Date: 07/20/18 This patient is an 82-year-old female past medical history of hyponatremia, SIADH, and recurrent alcohol use who presented to the emergency department via EMS with her on 07/18/18 after she was crying in pain and having difficulty ambulating. Patient was seen in the office by Dr. Meza last 07/15/18 where she was diagnosed with a right nondisplaced distal fibular fracture, and was instructed to weight bear as tolerated while in an equalizer boot. On arrival to ED yesterday, patient was found to have a new right nondisplaced oblique fracture through the distal mid diaphyseal tibia, in addition to the known right distal fibular fracture. is not in the room at the time of my exam, and patient is a poor historian. Therefore obtaining a history is difficult. Per patient, she does not know why an EMS was called or why she came to the hospital. She denies pain anywhere in the body. She denies injury or fall. Currently, patient states she is doing well. She denies pain in the right lower extremity. She states she has been remaining non-weight bearing on the right lower extremity in the splint, she is comfortable in the splint. Patient denies chest pain, shortness of breath, numbness or tingling of right lower extremity. She has no new orthopedic complaints today. Objective - Vital Signs Vital signs: Vital Signs Temp 97.5 F L 07/19/18 23:31 Pulse 70 07/19/18 23:31 Resp 16 07/19/18 23:31 BP 175/79 07/19/18 23:31 Pulse Ox 91 L 07/19/18 23:31 Intake & Output 07/19/18 07/20/18 07/20/18 18:59 06:59 18:59 Intake Total 280 1250 Balance 280 1250 Intake: Intake, IV Titration 1250 Amount Sodium Chloride 0.9% 1, 1250 000 ml @ 100 mls/hr IV . Q10H MELINA Rx#:[id number] Oral 180 Other 100 Other: Voiding Method Bedpan Bedpan # Voids 3 2 - Exam On examination, the patient is sitting up in bed in no acute distress. She is alert and orientated x2. On inspection of the right lower extremity, a posterior splint is in place. Splint is clean, dry, and intact. Patient is able to wiggle toes without difficulty. The right toes are warm and well-perfused, with brisk capillary refill. Sensation is intact to light touch of the dorsal foot. Neurovascular is intact of the right lower extremity. - Labs CBC & Chem 7: 07/18/18 07:55 07/18/18 07:55 Assessment and Plan Assessment: Acute right nondisplaced oblique fracture of the distal tibia Subacute right distal diaphyseal fibular fracture Plan: - Patient is to remain strictly non-weight bearing of right lower extremity. Remain in posterior splint, or she may transition back into her equalizer boot. - Ice and elevate right lower extremity to decrease pain and swelling. - PT/OT for gait and balance training. - Patient is to follow-up with Dr. Meza in the office in 1-2 days after discharge for application of a cast. - Anticipate discharge to extended care facility tomorrow. - Patient discussed with Dr. Meza.
[2018-07-20 08:22] LABS: Anion Gap 7 mmol/L; Blood Urea Nitrogen 13 mg/dL (7-17); Calcium 8.7 mg/dL (8.4-10.2); Carbon Dioxide 26 mmol/L (22-30); Chloride 99 mmol/L (98-107); Glucose 121 mg/dL (74-99); Potassium 4.7 mmol/L (3.5-5.1); Sodium 132 mmol/L (137-145)
[2018-07-20] MEDS: SODIUM CHLORIDE 0.9% 1,000 ML IV SCH ×2 (09:32→17:01)
[2018-07-20] MEDS: POLYETHYLENE GLYCOL 3350 17 GM POWD.PACK PO SCH (09:38)
[2018-07-20] MEDS: PANTOPRAZOLE 40 MG/10 ML VIAL IV SCH (09:38)
[2018-07-20] MEDS: SODIUM CHLORIDE TAB 1 GM TAB PO SCH (09:38)
[2018-07-20] MEDS: PROPRANOLOL 10 MG TAB PO SCH ×3 (09:38→20:00)
[2018-07-20] MEDS: HEPARIN SODIUM,PORCINE 5,000 UNIT/ML 1 ML VIAL SQ SCH ×3 (09:38→23:14)
[2018-07-20 09:58] LABS: T4, Free (Free Thyroxine) 1.34 ng/dL (0.78-2.19)
--- NOTE | 2018-07-20 13:34 | P.PN ---
Subjective his is an 82-year-old white female with a known history of recurrent alcohol use , SIADH and hyponatremia. She was in the office several weeks ago for right ankle pain. X-ray was done in the emergency room here in [facility] which showed no acute fracture. She was having a hard time weightbearing and the diagnosis of suspected ankle sprain was made. She was placed in a air cast and asked to bear minimal weight on this leg and allowed to heal. She, several weeks later, had much more severe pain after stepping down on this. She was seen in the office immediately scheduled for urgent visit with orthopedics on suspicion of acute stress fracture. She is diagnosed with Dr. Meza and was sent home with the AFO. At home she was unable to do anything and had extreme pain. Her also reports that she became dizzy and lightheaded. He brought her to emergency room for further evaluation. Today she is doing a bit better. She says her pain is significant but controlled with medication. She denies any more dizziness or lightheadedness. She denies any chest pains, pressures, shortness breath, nausea, or vomiting of his time. 07/20/2018 She is resting in chair. is here as well. Doing well, Pain somewhat better. ECf planned for tomorrow. sodium down to 132 today Objective - Vital Signs Vital signs: Vital Signs Temp 97.6 F 07/20/18 07:37 Pulse 66 07/20/18 07:37 Resp 16 07/20/18 07:37 BP 185/81 07/20/18 07:37 Pulse Ox 94 L 07/20/18 07:37 Intake & Output 07/19/18 07/20/18 07/20/18 18:59 06:59 18:59 Intake Total 280 1250 596 Balance 280 1250 596 Intake: Intake, IV Titration 1250 Amount Sodium Chloride 0.9% 1, 1250 000 ml @ 100 mls/hr IV . Q10H MELINA Rx#:[id number] Oral 180 596 Other 100 Other: Voiding Method Bedpan Bedpan Bedside Commode Bedpan # Voids 3 2 - Exam GENERAL: Well-appearing, Thin elderly white female well-known to me. She appears in minimal distress due to pain NECK: Normal range of motion, supple without lymphadenopathy or JVD, no thyromegaly LUNGS: Breath sounds clear to auscultation bilaterally and equal. No wheezes rales or rhonchi. HEART: Regular rate and rhythm without murmurs, rubs or gallops.S1S2 Normal ABDOMEN: Soft, nontender, normoactive bowel sounds. No guarding, no rebound. No masses appreciated. EXTREMITIES: There is a large right ankle dressing in place. NEUROLOGICAL: Cranial nerves II through XII grossly intact. Normal speech, Gait is untestable PSYCH: Normal mood, normal affect. SKIN: Warm, Dry, normal turgor, no rashes or lesions noted. - Labs CBC & Chem 7: 07/20/18 07:33 07/20/18 07:33 Labs: Abnormal Lab Results - Last 24 Hours (Table) 07/20/18 Range/Units 07:33 Sodium 132 L (137-145) mmol/L Creatinine 0.49 L (0.52-1.04) mg/dL Glucose 121 H (74-99) mg/dL TSH 0.461 L (0.465-4.680) mIU/L Assessment and Plan (1) Syncopal episodes Current Visit: Yes Status: Acute Code(s): R55 - SYNCOPE AND COLLAPSE SNOMED Code(s): 923032755 (2) Inability to ambulate due to ankle or foot Current Visit: Yes Status: Acute Code(s): R26.2 - DIFFICULTY IN WALKING, NOT ELSEWHERE CLASSIFIED SNOMED Code(s): 328587589 (3) Right tibial fracture Current Visit: Yes Status: Acute Code(s): S82.201A - UNSP FRACTURE OF SHAFT OF RIGHT TIBIA, INIT FOR CLOS FX SNOMED Code(s): 60406546 (4) Weakness generalized Current Visit: Yes Status: Acute Code(s): R53.1 - WEAKNESS SNOMED Code(s) : 82700873 (5) Hyponatremia Current Visit: No Status: Acute Code(s): E87.1 - HYPO-OSMOLALITY AND HYPONATREMIA SNOMED Code(s): 68943767 Plan: ortho recommendations reviewed Heplock IV recheck sodium in am continue current meds and TX ECF tomorrow for debility
--- NOTE | 2018-07-20 15:05 | P.PN ---
Progress Note - Text Progress Note Date: 07/20/18 Was called by the social media content specialist, Disha, regarding 's concerns for patient being transferred to the [facility] tomorrow, then having to leave the facility to be seen in the office for a cast application. I spoke with patient and her and they would like the cast placed before patient is discharged. Therefore, posterior splint was taken down and a short leg cast was applied to the patient's right lower extremity today. On inspection of the right lower leg, there was ecchymosis present on the anterior lower leg. No open wounds or lacerations. Sensation intact to light touch of the right lower extremity. Neurovascular intact of the right lower extremity. After cast application, patient is able to move her toes without issue, right toes are warm and well-perfused with brisk capillary refill. Patient tolerated cast application well. Patient is to remain strictly non-weight bearing of the right lower extremity. Cast is to remain clean, dry, and intact until follow-up appointment with Dr. Meza in the office.
[2018-07-21 01:11] VITALS: PULSE 69
[2018-07-21] MEDS: HYDROcodone/APAP 5-325MG 1 EACH TAB PO PRN ×2 (03:03→11:19)
[2018-07-21] MEDS: SODIUM CHLORIDE 0.9% 1,000 ML IV SCH (05:05)
[2018-07-21 06:45] LABS: Basophils % (A) 0 %; Eosinophils # (A) 0.2 k/uL (0-0.7); Eosinophils % (A) 5 %; HCT 39.2 % (34.0-46.0); HGB 12.8 gm/dL (11.4-16.0); Lymphocytes % (A) 21 %; MCH 31.5 pg (25.0-35.0); MCHC 32.7 g/dL (31.0-37.0); MCV 96.2 fL (80.0-100.0); Mean Platelet Volume 6.1; Monocytes # (A) 0.4 k/uL (0-1.0); Monocytes % (A) 9 %; Neutrophils % (A) 63 %; Platelet Count 305 k/uL (150-450); RBC 4.08 m/uL (3.80-5.40); WBC 4.8 k/uL (3.8-10.6)
[2018-07-21 06:58] LABS: Anion Gap 8 mmol/L; Blood Urea Nitrogen 13 mg/dL (7-17); Calcium 8.7 mg/dL (8.4-10.2); Carbon Dioxide 26 mmol/L (22-30); Chloride 92 mmol/L (98-107); Glucose 111 mg/dL (74-99); Potassium 4.3 mmol/L (3.5-5.1); Sodium 126 mmol/L (137-145)
[2018-07-21 07:17] VITALS: BP 130/70; RESP 12; TEMP 97.9
[2018-07-21] MEDS: PROPRANOLOL 10 MG TAB PO SCH (07:55)
[2018-07-21] MEDS: HEPARIN SODIUM,PORCINE 5,000 UNIT/ML 1 ML VIAL SQ SCH (07:55)
[2018-07-21] MEDS: SODIUM CHLORIDE TAB 1 GM TAB PO SCH (07:55)
[2018-07-21] MEDS: PANTOPRAZOLE 40 MG/10 ML VIAL IV SCH (07:55)
[2018-07-21] MEDS: ACETAMINOPHEN TAB 325 MG TAB PO PRN (07:55)
[2018-07-21] MEDS: POLYETHYLENE GLYCOL 3350 17 GM POWD.PACK PO SCH (07:55)
--- NOTE | 2018-07-21 10:57 | P.DS ---
Providers Date of admission: 07/18/18 09:56 Attending physician: Myles Oliva Consults: 07/18/18 09:56 Consult Physician Stat Consulting Provider: Kevan Meza Consult Reason/Comments: Tibia fracture Do you want consulting provider notified?: Yes Primary care physician: Jesse Abbasi - Discharge Diagnosis(es) (1) Syncopal episodes Current Visit: Yes Status: Acute (2) Inability to ambulate due to ankle or foot Current Visit: Yes Status: Acute (3) Right tibial fracture Current Visit: Yes Status: Acute (4) Weakness generalized Current Visit: Yes Status: Acute (5) Hyponatremia Current Visit: No Status: Acute Hospital Course: his is an 82-year-old white female with a known history of recurrent alcohol use , SIADH and hyponatremia. She was in the office several weeks ago for right ankle pain. X-ray was done in the emergency room here in [facility] which showed no acute fracture. She was having a hard time weightbearing and the diagnosis of suspected ankle sprain was made. She was placed in a air cast and asked to bear minimal weight on this leg and allowed to heal. She, several weeks later, had much more severe pain after stepping down on this. She was seen in the office immediately scheduled for urgent visit with orthopedics on suspicion of acute stress fracture. She is diagnosed with Dr. Meza and was sent home with the AFO. At home she was unable to do anything and had extreme pain. Her also reports that she became dizzy and lightheaded. He brought her to emergency room for further evaluation. Today she is doing a bit better. She says her pain is significant but controlled with medication. She denies any more dizziness or lightheadedness. She denies any chest pains, pressures, shortness breath, nausea, or vomiting of his time. 07/20/2018 She is resting in chair. is here as well. Doing well, Pain somewhat better. ECf planned for tomorrow. sodium down to 132 today 07/21/2018: yesterday a cast was placed by ortho on patient. reports she is more confused, but getting norco and xanax at his time. sodium down to 126. She bassam have BMP tomorrow at [facility] and contiue sodium pills of 1g bid, fluid restrictions of 1500ml per day. will eval her at [facility] 07/22 Patient Condition at Discharge: Stable Plan - Discharge Summary New Discharge Prescriptions: New HYDROcodone/APAP 5-325MG [[place] 5-325] 1 each PO Q4HR PRN tab PRN Reason: Moderate Pain Continue Sodium Chloride Tab 1 gm PO DAILY #30 tab ALPRAZolam [Xanax] 0.25 mg PO Q8H PRN PRN Reason: Anxiety L. Acidophilus/L.bulgaricus [Lactinex Chewable Tablet] 1 tab PO QID Acetaminophen Tab [Tylenol] 650 mg PO Q6H PRN PRN Reason: Pain guaiFENesin [Mucinex] 600 mg PO BID Propranolol [Inderal] 10 mg PO TID Ibuprofen [Motrin] 800 mg PO Q6H PRN PRN Reason: Pain Cranberry 450mg 1 tab PO BID Discharge Medication List Sodium Chloride Tab 1 gm PO DAILY #30 tab 11/23/15 [Rx] ALPRAZolam [Xanax] 0.25 mg PO Q8H PRN 06/08/17 [History] L. Acidophilus/L.bulgaricus [Lactinex Chewable Tablet] 1 tab PO QID 10/20/17 [ History] Acetaminophen Tab [Tylenol] 650 mg PO Q6H PRN 06/25/18 [History] guaiFENesin [Mucinex] 600 mg PO BID 06/25/18 [History] Cranberry 450mg 1 tab PO BID 07/18/18 [History] Ibuprofen [Motrin] 800 mg PO Q6H PRN 07/18/18 [History] Propranolol [Inderal] 10 mg PO TID 07/18/18 [History] HYDROcodone/APAP 5-325MG [[place] 5-325] 1 each PO Q4HR PRN tab 07/21/18 [Rx] Follow up Appointment(s)/Referral(s): Jesse Abbasi MD [Primary Care Provider] - 1-2 days Kevan Meza MD [Medical Doctor] - 2 Weeks Ambulatory/Diagnostic Orders: Basic Metabolic Panel [LAB.AMB] Time Frame: 1 Day, Location: None Selected Discharge Disposition: TRANSFER TO SNF/ECF
[2018-07-22] MEDS ORDERED: PANTOPRAZOLE 40 MG TABLET PO SCH (07:30)
== END 2018-07-21 16:12 | DRG 563 ==
LOC: EC 06:20 → 4SSUR 09:56
PROVIDERS: ADMIT Family Medicine; ATTEND Family Medicine
DX: S82.309A Unspecified fracture of lower end of unspecified tibia, initial encounter for closed fracture (principal); E22.2 Syndrome of inappropriate secretion of antidiuretic hormone; S89.301D Unspecified physeal fracture of lower end of right fibula, subsequent encounter for fracture with routine healing; E78.5 Hyperlipidemia, unspecified; F03.90 Unspecified dementia, unspecified severity, without behavioral disturbance, psychotic disturbance, mood disturbance, and anxiety; I34.1 Nonrheumatic mitral (valve) prolapse; J84.10 Pulmonary fibrosis, unspecified; K58.9 Irritable bowel syndrome, unspecified; N30.20 Other chronic cystitis without hematuria; Z79.899 Other long term (current) drug therapy; Z87.442 Personal history of urinary calculi; Z87.891 Personal history of nicotine dependence; Z90.710 Acquired absence of both cervix and uterus; H26.9 Unspecified cataract; Z85.828 Personal history of other malignant neoplasm of skin; Z88.1 Allergy status to other antibiotic agents; Z88.3 Allergy status to other anti-infective agents; Z88.2 Allergy status to sulfonamides; Z80.1 Family history of malignant neoplasm of trachea, bronchus and lung; Z83.6 Family history of other diseases of the respiratory system; Z82.0 Family history of epilepsy and other diseases of the nervous system; R26.2 Difficulty in walking, not elsewhere classified; R55 Syncope and collapse; Z87.440 Personal history of urinary (tract) infections
CPT/HCPCS: 29515; 36415; 51701; 71046; 80048; 80053; 81001; 84439; 84443; 85025; 93005; 99285

== ENCOUNTER 2018-10-01 14:44 | Emergency (ER) | payer MEDICARE ==
[2018-10-01 14:54] VITALS: TEMP 97.6
[2018-10-01] MEDS ORDERED: KETOROLAC 30 MG/ML 1 ML VIAL IVP STA (15:18)
[2018-10-01] MEDS ORDERED: SODIUM CHLORIDE 0.9% 500 ML IV STA (15:18)
[2018-10-01] MEDS ORDERED: ONDANSETRON 4 MG/2 ML VIAL IVP STA (15:18)
[2018-10-01] MEDS ORDERED: diphenhydrAMINE 50 MG/ML 1 ML VIAL IVP STA (15:18)
--- NOTE | 2018-10-01 15:22 | ED ---
General Adult HPI - General Chief complaint: Headache Stated complaint: headache Time Seen by Provider: 10/01/18 14:56 Source: patient, EMS Mode of arrival: EMS Limitations: no limitations - History of Present Illness Initial comments: Dictation was produced using [employer] dictation software. please excuse any grammatical, word or spelling errors. Chief Complaint: 82-year-old female with multiple comorbidities presents with 2- 3 days of headache. History of Present Illness: Patient is a 82-year-old female presents with 2-3 days of headache. Patient states she is here today because her told her to come here. She gets headaches approximately once a month. States she feels like her head is enlarged. She states that the pain is all cranial. She sits non-throbbing in nature. States that this episode started about 2 to 3 days ago. She denies this headache being the worse headache of her life. She is here today for evaluation per she has never seen a physician or specialist for evaluation of her headache before. Patient denies any diurnal pattern to her headaches. No exacerbation or mitigating factors. Patient has no neuro deficits. Denies any difficulties ambulating. The ROS documented in this emergency department record has been reviewed and confirmed by me. Those systems with pertinent positive or negative responses have been documented in the HPI. All other systems are other negative and/or noncontributory. PHYSICAL EXAM: General Impression: Alert and oriented x3, not in acute distress HEENT: Normocephalic atraumatic, extra-ocular movements intact, pupils equal and reactive to light bilaterally, mucous membranes moist. Cardiovascular: Heart regular rate and rhythm, S1&S2 audible, no murmurs, rubs or gallops Chest: Lungs clear to auscultation bilaterally, no rhonchi, no wheeze, no rales Abdomen: Bowel sounds present, abdomen soft, non-tender, non-distended, no organomegaly Musculoskeletal: Pulses present and equal in all extremities, no peripheral edema Motor: no focal deficits noted Neurological: CN II-XII grossly intact, no focal motor or sensory deficits noted, normal gait Skin: Intact with no visualized rashes Psych: Normal affect and mood ED course: 82 yo female presents with chief complaint of medical evaluation for her headache. She denies this being the worse headache of her life. Denies thunderclap in nature. As upon arrival are within acceptable limits. Patient is not concerned about this headache however she was told that her wanted her to come to get checked out. Discussed patient that CT imaging is not indicated at this time however she agreed that she would like some sort of imaging performed today. Patient given intravenous fluids and headache cocktail. CT of the brain ordered. was at bedside and had a different story. Reports that patient was recently in a rehab facility. He took out of the rehab facility earlier than was recommended. She had short episode of confusion earlier today and diarrhea. She does appear well at the moment and at baseline per patient's .Laboratory evaluation obtained. CBC, metabolic panel, rapid urine drug screen obtained. Patient is positive for benzodiazepine. Patient has urinalysis that was suggest urinary tract infection. Previous urine specimen shows ESBL however there is sensitivity to Macrobid except the patient has a anaphylactic sensitivity to Macrobid. is adamant about taking patient home. Patient denies any urinary symptoms. She appears well and not showing any signs of infection. wants to take her home and follow-up on urine cultures. He is given referral to neurology. At this point I believe this is reasonable disposition given that patient has history of chronic white blood cell with urine culture. They are told to expect to return to the emergency department if her urine culture is positive given she has a history of multi drug resistant urinary tract infections in the past. EKG interpretation: Ventricular rate 52, sinus bradycardia, MI interval 184, QRS 82, QTc 450. No MI prolongation, no QTC prolongation, no ST or T-wave changes noted. . Overall, this EKG is unremarkable - Related Data Home Medications Medication Instructions Recorded Confirmed ALPRAZolam [Xanax] 0.25 mg PO Q8H PRN 06/08/17 10/01/18 L. Acidophilus/L.bulgaricus 1 tab PO QID 10/20/17 10/01/18 [Lactinex Chewable Tablet] Acetaminophen Tab [Tylenol] 650 mg PO Q6H PRN 06/25/18 10/01/18 guaiFENesin [Mucinex] 600 mg PO BID 06/25/18 10/01/18 Cranberry 450mg 1 tab PO BID 07/18/18 10/01/18 Propranolol [Inderal] 10 mg PO TID 07/18/18 10/01/18 Benzonatate [Tessalon Perles] 100 mg PO TID PRN 10/01/18 10/01/18 Donepezil HCl [Aricept] 10 mg PO HS 10/01/18 10/01/18 HYDROcodone/APAP 5-325MG [[place] 1 tab PO Q4HR PRN 10/01/18 10/01/18 5-325] Lactose-Reduced Food [Ensure Plus] 1 can PO TID 10/01/18 10/01/18 Previous Rx's Medication Instructions Recorded Sodium Chloride Tab 1 gm PO DAILY #30 tab 11/23/15 Allergies Allergy/AdvReac Type Severity Reaction Status Date / Time metronidazole [From Flagyl] Allergy Rash/Hives Verified 10/01/18 16:22 nitrofurantoin Allergy Anaphylaxis Verified 10/01/18 16:22 [From Macrobid] nitrofurantoin Allergy Anaphylaxis Verified 10/01/18 16:22 macrocrystalline [From Macrodantin] Sulfa (Sulfonamide Allergy Unknown Verified 10/01/18 16:22 Antibiotics) levofloxacin [From Levaquin] AdvReac Hallucinati Verified 10/01/18 16:22 ons Review of Systems ROS Statement: Those systems with pertinent positive or pertinent negative responses have been documented in the HPI. ROS Other: All systems not noted in ROS Statement are negative. Past Medical History Past Medical History: Chest Pain / Angina, Hyperlipidemia, Mitral Valve Prolapse (MVP), Renal Disease, Skin Disorder, Supraventricular Tachycardia (SVT) Additional Past Medical History / Comment(s): weakness, UTI. hyponatremia, AMS, dehydration, weakness generalized, chronic cystitis, Macrodantin lung fibrosis, benign adrenal gland growth, kidney stones, IBS, balance issues, MVP with surgical repair, acute metabolic encephalopathy with hyponatremia d/t SIADH in the past, cataract L eye, past L humerus fracture, dermatitis. 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 Past Anesthesia/Blood Transfusion Reactions: Postoperative Nausea & Vomiting (PONV) Past Psychological History: No Psychological Hx Reported Smoking Status: Former smoker Past Alcohol Use History: Daily Past Drug Use History: None Reported - Past Family History Father History Unknown: Yes Additional Family Medical History / Comment(s): Father of an aneurysm rupture at age 77 yrs. Mother History Unknown: Yes Family Medical History: Cancer Additional Family Medical History / Comment(s): Mother at age 77 of lung /bone cancer. She was a smoker. Sister(s) Additional Family Medical History / Comment(s): MS Son(s) Family Medical History: Pneumonia General Exam Limitations: no limitations Course Vital Signs 10/01/18 10/01/18 10/01/18 14:53 16:30 17:53 Temperature 97.6 F Pulse Rate 54 L 52 L 54 L Respiratory 16 18 16 Rate Blood Pressure 146/74 151/69 134/58 O2 Sat by Pulse 96 98 97 Oximetry Medical Decision Making - Lab Data Result diagrams: 10/01/18 15:37 10/01/18 15:37 Lab Results 10/01/18 10/01/18 10/01/18 Range/Units 15:37 15:37 15:37 WBC 7.5 (3.8-10.6) k/uL RBC 4.42 (3.80-5.40) m/uL Hgb 13.4 (11.4-16.0) gm/dL Hct 41.1 (34.0-46.0) % MCV 93.1 (80.0-100.0) fL MCH 30.4 (25.0-35.0) pg MCHC 32.7 (31.0-37.0) g/dL RDW 14.8 (11.5-15.5) % Plt Count 269 (150-450) k/uL Neutrophils % 70 % Lymphocytes % 19 % Monocytes % 5 % Eosinophils % 2 % Basophils % 1 % Neutrophils # 5.3 (1.3-7.7) k/uL Lymphocytes # 1.5 (1.0-4.8) k/uL Monocytes # 0.4 (0-1.0) k/uL Eosinophils # 0.1 (0-0.7) k/uL Basophils # 0.1 (0-0.2) k/uL Sodium 138 (137-145) mmol/L Potassium 4.8 (3.5-5.1) mmol/L Chloride 105 (98-107) mmol/L Carbon Dioxide 26 (22-30) mmol/L Anion Gap 7 mmol/L BUN 12 (7-17) mg/dL Creatinine 0.40 L (0.52-1.04) mg/dL Est GFR (CKD-EPI)AfAm >90 (>60 ml/min/1.73 sqM) Est GFR (CKD-EPI)NonAf >90 (>60 ml/min/1.73 sqM) Glucose 80 (74-99) mg/dL Calcium 9.2 (8.4-10.2) mg/dL Magnesium 1.6 (1.6-2.3) mg/dL Total Bilirubin 0.4 (0.2-1.3) mg/dL AST 24 (14-36) U/L ALT 27 (9-52) U/L Alkaline Phosphatase 94 (38-126) U/L Ammonia <9 (<30) umol/L Troponin I (0.000-0.034) ng/mL Total Protein 6.5 (6.3-8.2) g/dL Albumin 3.8 (3.5-5.0) g/dL Urine Color Urine Appearance (Clear) Urine pH (5.0-8.0) Ur Specific [place] (1.001-1.035) Urine Protein (Negative) Urine Glucose (UA) (Negative) Urine Ketones (Negative) Urine Blood (Negative) Urine Nitrite (Negative) Urine Bilirubin (Negative) Urine Urobilinogen (<2.0) mg/dL Ur Leukocyte Esterase (Negative) Urine RBC (0-5) /hpf Urine WBC (0-5) /hpf Ur Squamous Epith Cells (0-4) /hpf Amorphous Sediment (None) /hpf Urine Bacteria (None) /hpf Hyaline Casts (0-2) /lpf Urine Opiates Screen (NotDetected) Ur Oxycodone Screen (NotDetected) Urine Methadone Screen (NotDetected) Ur Propoxyphene Screen (NotDetected) Ur Barbiturates Screen (NotDetected) U Tricyclic Antidepress (NotDetected) Ur Phencyclidine Scrn (NotDetected) Ur Amphetamines Screen (NotDetected) U Methamphetamines Scrn (NotDetected) U Benzodiazepines Scrn (NotDetected) Urine Cocaine Screen (NotDetected) U Marijuana (THC) Screen (NotDetected) 10/01/18 10/01/18 10/01/18 Range/Units 15:37 16:49 18:35 WBC (3.8-10.6) k/uL RBC (3.80-5.40) m/uL Hgb (11.4-16.0) gm/dL Hct (34.0-46.0) % MCV (80.0-100.0) fL MCH (25.0-35.0) pg MCHC (31.0-37.0) g/dL RDW (11.5-15.5) % Plt Count (150-450) k/uL Neutrophils % % Lymphocytes % % Monocytes % % Eosinophils % % Basophils % % Neutrophils # (1.3-7.7) k/uL Lymphocytes # (1.0-4.8) k/uL Monocytes # (0-1.0) k/uL Eosinophils # (0-0.7) k/uL Basophils # (0-0.2) k/uL Sodium (137-145) mmol/L Potassium (3.5-5.1) mmol/L Chloride (98-107) mmol/L Carbon Dioxide (22-30) mmol/L Anion Gap mmol/L BUN (7-17) mg/dL Creatinine (0.52-1.04) mg/dL Est GFR (CKD-EPI)AfAm (>60 ml/min/1.73 sqM) Est GFR (CKD-EPI)NonAf (>60 ml/min/1.73 sqM) Glucose (74-99) mg/dL Calcium (8.4-10.2) mg/dL Magnesium (1.6-2.3) mg/dL Total Bilirubin (0.2-1.3) mg/dL AST (14-36) U/L ALT (9-52) U/L Alkaline Phosphatase (38-126) U/L Ammonia (<30) umol/L Troponin I <0.012 (0.000-0.034) ng/mL Total Protein (6.3-8.2) g/dL Albumin (3.5-5.0) g/dL Urine Color Light Yellow Urine Appearance Cloudy H (Clear) Urine pH 7.0 (5.0-8.0) Ur Specific [place] 1.010 (1.001-1.035) Urine Protein Negative (Negative) Urine Glucose (UA) Negative (Negative) Urine Ketones Trace H (Negative) Urine Blood Negative (Negative) Urine Nitrite Negative (Negative) Urine Bilirubin Negative (Negative) Urine Urobilinogen <2.0 (<2.0) mg/dL Ur Leukocyte Esterase Large H (Negative) Urine RBC 4 (0-5) /hpf Urine WBC 40 H (0-5) /hpf Ur Squamous Epith Cells 16 H (0-4) /hpf Amorphous Sediment Occasional H (None) /hpf Urine Bacteria Moderate H (None) /hpf Hyaline Casts 2 (0-2) /lpf Urine Opiates Screen Not Detected (NotDetected) Ur Oxycodone Screen Not Detected (NotDetected) Urine Methadone Screen Not Detected (NotDetected) Ur Propoxyphene Screen Not Detected (NotDetected) Ur Barbiturates Screen Not Detected (NotDetected) U Tricyclic Antidepress Not Detected (NotDetected) Ur Phencyclidine Scrn Not Detected (NotDetected) Ur Amphetamines Screen Not Detected (NotDetected) U Methamphetamines Scrn Not Detected (NotDetected) U Benzodiazepines Scrn Detected H (NotDetected) Urine Cocaine Screen Not Detected (NotDetected) U Marijuana (THC) Screen Not Detected (NotDetected) Disposition Clinical Impression: Headache Disposition: HOME SELF-CARE Condition: Good Instructions (If sedation given, give patient instructions): Acute Headache (ED) Is patient prescribed a controlled substance at d/c from ED?: No Referrals: Jesse Abbasi MD [Primary Care Provider] - 1-2 days Yamilka Cordoba MD [STAFF PHYSICIAN] - 1-2 days Time of Disposition: 19:19
--- NOTE | 2018-10-01 16:08 | CT ---
EXAMINATION TYPE: CT brain wo con DATE OF EXAM: 10/01/2018 COMPARISON: 03/20/2017 HISTORY: Patient complains of headache. CT DLP: 1105.[address] of the brain was performed. The ventricles, basal cisterns and sulci overlying the cerebral convexities demonstrate mild enlargem ent. There is no evidence for intracranial hemorrhage or sulcal effacement. There is decreased attenuation about the periventricular white matter and deep white matter of both c erebral hemispheres, compatible with chronic small vessel ischemia. Differential diagnosis does inclu de demyelination. No mass effects are seen.No midline shift. Osseous calvarium is intact. If symptoms persist consider MRI. IMPRESSION: 1. Age related atrophic and chronic small vessel ischemic change without acute intracranial process s een at this time.
[2018-10-01 17:13] LABS: Basophils # (A) 0.1 k/uL (0-0.2); Basophils % (A) 1 %; Eosinophils # (A) 0.1 k/uL (0-0.7); Eosinophils % (A) 2 %; HCT 41.1 % (34.0-46.0); HGB 13.4 gm/dL (11.4-16.0); Lymphocytes # (A) 1.5 k/uL (1.0-4.8); Lymphocytes % (A) 19 %; MCH 30.4 pg (25.0-35.0); MCHC 32.7 g/dL (31.0-37.0); MCV 93.1 fL (80.0-100.0); Mean Platelet Volume 7.5; Monocytes # (A) 0.4 k/uL (0-1.0); Monocytes % (A) 5 %; Neutrophils # (A) 5.3 k/uL (1.3-7.7); Neutrophils % (A) 70 %; Platelet Count 269 k/uL (150-450); RBC 4.42 m/uL (3.80-5.40); RDW 14.8 % (11.5-15.5); WBC 7.5 k/uL (3.8-10.6)
[2018-10-01 17:23] LABS: ALT 27 U/L (9-52); AST 24 U/L (14-36); Albumin 3.8 g/dL (3.5-5.0); Alkaline Phosphatase 94 U/L (38-126); Anion Gap 7 mmol/L; Blood Urea Nitrogen 12 mg/dL (7-17); Calcium 9.2 mg/dL (8.4-10.2); Carbon Dioxide 26 mmol/L (22-30); Chloride 105 mmol/L (98-107); Glucose 80 mg/dL (74-99); Magnesium 1.6 mg/dL (1.6-2.3); Potassium 4.8 mmol/L (3.5-5.1); Sodium 138 mmol/L (137-145); Total Bilirubin 0.4 mg/dL (0.2-1.3); Total Protein 6.5 g/dL (6.3-8.2)
[2018-10-01 18:55] LABS: Amorphous Sediment,Urine Occasional /hpf; Appearance,Urine Cloudy (Clear); Bacteria,Urine Moderate /hpf; Bilirubin,Urine Negative (Negative); Blood,Urine Negative (Negative); Color,Urine Light Yellow; Glucose,Urine (UA) Negative (Negative); Hyaline Casts,Urine 2 /lpf (0-2); Ketones,Urine Trace (Negative); Leukocyte Esterase,Urine Large (Negative); Nitrite,Urine Negative (Negative); Protein,Urine Negative (Negative); RBC,Urine 4 /hpf (0-5); Squamous Epithelial Cell,Urine 16 /hpf (0-4); Urobilinogen,Urine <2.0 mg/dL (<2.0); WBC,Urine 40 /hpf (0-5)
[2018-10-01 19:01] LABS: Amphetamine Screen,Urine Not Detected (NotDetected); Barbiturate Screen,Urine Not Detected (NotDetected); Benzodiazepines Screen,Urine Detected (NotDetected); Cocaine Screen,Urine Not Detected (NotDetected); Methadone Screen, Urine Not Detected (NotDetected); Opiate Screen,Urine Not Detected (NotDetected); Oxycodone Screen, Urine Not Detected (NotDetected); Phencyclidine Screen,Urine Not Detected (NotDetected); Tricyclic Antidepressant,Urine Not Detected (NotDetected); Urn Cannabinoid Scrn Not Detected (NotDetected)
[2018-10-01 19:39] VITALS: BP 133/56; PULSE 56; RESP 18
== END 2018-10-01 19:40 | disposition home or self-care (01) ==
LOC: EC 14:44
DX: R51 Headache (principal); Z85.828 Personal history of other malignant neoplasm of skin; Z87.891 Personal history of nicotine dependence; Z79.899 Other long term (current) drug therapy; Z88.1 Allergy status to other antibiotic agents; Z88.2 Allergy status to sulfonamides; Z88.8 Allergy status to other drugs, medicaments and biological substances; Z95.818 Presence of other cardiac implants and grafts
CPT/HCPCS: 36415; 93005; 80053; 82140; 83735; 84484; 85025; 81001; 80306; 87086; 70450; 99284; 96374; 96375 ×2; 96361; J1200; J2405; J1885